=== PATIENT | female | born 1965 | race Caucasian/White ===

== ENCOUNTER 2017-10-04 10:45 | Emergency (ER) | payer MEDICARE ==
[2017-10-04 13:35] LABS: BASOPHILS 0.2 % (0-2); EOSINOPHILS 0.5 % (0-7); HEMATOCRIT 43.6 % (36.0-48.0); HEMOGLOBIN 14.8 g/dL (12-16); IMMATURE GRANULOCYTES 0.1 % (0-5); LYMPHOCYTES 15.4 % (15-50); MCH 29.6 pg (26.0-34.0); MCHC 33.9 g/dL (31.0-37.0); MCV 87.2 fL (80.0-100.0); MEAN PLATELET VOLUME 9.5 fL (7.4-10.4); MONOCYTES 8.7 % (2-11); NEUTROPHILS 75.1 % (40-80); PLATELET COUNT 203 10x3/uL (130-400); RDW 13.2 % (11.5-14.5); WBC 9.2 10x3/uL (4.8-10.8)
[2017-10-04 13:43] LABS: INR 0.98 (0.85-1.17); PROTIME 12.6 SECONDS (11.6-15.0)
[2017-10-04 13:51] LABS: ALBUMIN 3.9 g/dL (3.4-5.0); ANION GAP 11.7 mmol/L (8-16); BILIRUBIN - TOTAL 0.39 mg/dL (0.2-1.3); CALCIUM 9.3 mg/dL (8.5-10.1); CARBON DIOXIDE 29.3 mmol/L (21.0-32.0); CREATININE - SERUM 0.9 mg/dL (0.6-1.3); PROTEIN - SERUM 8.2 g/dL (6.4-8.2)
[2017-10-04 14:00] LABS: THYROID STIMULATING HORMONE 0.97 uIU/mL (0.36-3.74)
== END 2017-10-04 15:30 | disposition home or self-care (01) ==
LOC: D.ER 10:45
PROVIDERS: Family Medicine
DX: K62.89 Other specified diseases of anus and rectum (principal)

== ENCOUNTER 2018-03-04 08:00 | Day surgery (SDC) | payer BC ==
[2018-03-03 16:20] LABS: BASOPHILS 0.4 % (0-2); EOSINOPHILS 3.8 % (0-7); HEMATOCRIT 41.3 % (36.0-48.0); HEMOGLOBIN 13.7 g/dL (12-16); IMMATURE GRANULOCYTES 0.1 % (0-5); LYMPHOCYTES 19.3 % (15-50); MCHC 33.2 g/dL (31.0-37.0); MCV 87.3 fL (80.0-100.0); MEAN PLATELET VOLUME 10.1 fL (7.4-10.4); MONOCYTES 10.7 % (2-11); NEUTROPHILS 65.7 % (40-80); PLATELET COUNT 236 10x3/uL (130-400); RBC 4.73 10x6/uL (4.00-5.40); RDW 13.3 % (11.5-14.5); WBC 7.9 10x3/uL (4.8-10.8)
[2018-03-03 16:47] LABS: ANION GAP 14.9 mmol/L (8-16); CALCIUM 9.1 mg/dL (8.5-10.1); CARBON DIOXIDE 26.1 mmol/L (21.0-32.0); CREATININE - SERUM 0.9 mg/dL (0.6-1.3)
[~2018-03-04] VITALS: Ht 162.6 cm; Wt 96.4 kg
--- NOTE | ~2018-03-04 | OP ---
PATIENT NAME: YA MOCTEZUMA MEDICAL RECORD: [id number] :67 LOCATION:D.OPS ADMISSION DATE: SURGEON: ROMAIN FINNEGAN MD DATE OF OPERATION: 03/04/2018 PREOPERATIVE DIAGNOSIS: Gallstones. POSTOPERATIVE DIAGNOSIS: Gallstones. PROCEDURE: Laparoscopic cholecystectomy. SURGEON: Romain Finnegan MD [employer]ING MACHINE OPERATOR: Lindy Nina APRN REPORT OF PROCEDURE: The patient's abdomen was prepped and draped in sterile fashion. A cutdown was made on the superior aspect of the umbilicus. A 0 Vicryls were placed in the fascia bilaterally and the fascia was incised with a 15-blade. I then bluntly entered the peritoneal cavity and placed a 12-mm Shea port. Under direct visualization, a 5-mm trocar was placed in the epigastrium and two more 5-mm trocars were placed in the right subcostal region. The gallbladder was elevated. There was a lot of inflammatory adhesions present to the gallbladder. Upon grasping the gallbladder, it was perforated and there was spillage of bile. We dissected out the cystic artery and cystic duct and these were clipped proximally and distally and ligated in standard fashion. The gallbladder was then taken off the liver bed using electrocautery and placed into an Endo Catch bag. Any bleeding from the liver bed was then treated with electrocautery. We irrigated out the right upper quadrant to assure there was no sign of any further bleeding or bile leakage. At this point, the ports and insufflation were then removed and the gallbladder was taken out through the umbilicus. The umbilical fascia was closed with interrupted 0 Vicryls times 3. The wounds were then irrigated out with normal saline and infused with 10 mL of 0.25% Marcaine with epinephrine. The skin incisions were all closed with subcutaneous 5-0 Monocryl and dressed appropriately. COMPLICATIONS: None. CONDITION: Stable. ANESTHESIA: General endotracheal and local. BLOOD LOSS: Minimal. TRANSINT:[id number] Voice Confirmation ID: [id number] DOCUMENT ID: [id number] ROMAIN FINNEGAN MD at 1409 CC: MELCHOR OROPEZA MD [id number] DICTATION DATE: 03/04/18 1101 INTERNATIONAL ACCOUNT MANAGER: 03/04/18 1138 [facility] 03/04/18 [facility] [address] [place] [address]
[~2018-03-04 08:00] MED LIST: COLON HEALTH; DAYQUIL
[2018-03-04] MEDS ORDERED: RANITIDINE HCL150 M1 PO (08:23)
[2018-03-04 08:27] VITALS: BP 117/80; Ht 162.6 cm; Wt 96.4 kg
[2018-03-04] MEDS ORDERED: DILAUDID2 MG PO (10:57)
== END 2018-03-04 14:15 | disposition home or self-care (01) ==
LOC: D.OPS 08:00
PROVIDERS: Surgery
DX: K80.80 Other cholelithiasis without obstruction (principal)